=== PATIENT | male | born 1995 | race Caucasian/White ===

== ENCOUNTER 2018-09-19 21:44 | Emergency (ER) | payer SELFPAY ==
[~2018-09-19] VITALS: Ht 180.3 cm; Wt 86.4 kg
[2018-09-19 21:47] VITALS: BP 163/78; TEMP 97.8
[2018-09-19 23:28] VITALS: PULSE 57
== END 2018-09-19 23:30 | disposition home or self-care (01) ==
LOC: COL.ER 21:44
DX: R51 Headache (principal); Z86.69 Personal history of other diseases of the nervous system and sense organs
CPT/HCPCS: J1885; J2550